=== PATIENT | male | born 1960 | race Caucasian/White ===

== ENCOUNTER 2019-09-17 21:08 | Emergency (ER) | payer SELFPAY ==
--- NOTE | 2019-09-17 21:49 | EDM.PDOC ---
ED HPI GENERAL MEDICAL PROBLEM - General Chief Complaint: ENT Problem Stated Complaint: EARS ARE PLUGGED Time Seen by Provider: 09/17/19 21:35 Source of Information: Reports: Patient History Limitations: Reports: No Limitations - History of Present Illness INITIAL COMMENTS - FREE TEXT/NARRATIVE: ED with c/o ears feeling plugged, every couple of months needs them flushed. left ear canal stuck together with wax this am. PCP in , Here working. Denies other c/o - Related Data Allergies Allergy/AdvReac Type Severity Reaction Status Date / Time ibuprofen Allergy Rash Verified 09/17/19 21:17 Penicillins Allergy Rash Verified 09/17/19 21:17 Sulfa (Sulfonamide Allergy Rash Verified 09/17/19 21:17 Antibiotics) Home Meds: Home Meds Aspirin [Halfprin] 81 mg PO DAILY 09/17/19 [History] Lenalidomide [Revlimid] mg PO DAILY 09/17/19 [History] Past Medical History HEENT History: Reports: Impaired Vision Oncologic (Cancer) History: Reports: Lymphoma Social & Family History - Family History Family Medical History: Noncontributory - Tobacco Use Smoking Status *Q: Never Smoker Second Hand Smoke Exposure: No - Caffeine Use Caffeine Use: Reports: Soda - Recreational Drug Use Recreational Drug Use: No ED ROS ENT - Review of Systems Review Of Systems: Comprehensive ROS is negative, except as noted in HPI. ED EXAM, ENT - Physical Exam Exam: See Below Exam Limited By: No Limitations General Appearance: Alert, No Apparent Distress Eye Exam: Bilateral Eye: EOMI Ears: Normal External Exam, Canal Material (small amount bilateral), Cerumen Impaction (partial bilateral) Mouth/Throat: Normal Inspection Head: Atraumatic, Normocephalic Respiratory/Chest: No Respiratory Distress, Normal Breath Sounds Cardiovascular: Regular Rate, Rhythm Extremities: Normal Range of Motion Neurological: Alert, Oriented Psychiatric: Normal Affect, Normal Mood Course - Vital Signs Last Recorded V/S: Last Vital Signs Temp 97.8 F 09/17/19 21:16 Pulse 70 09/17/19 21:16 Resp 18 09/17/19 21:16 BP 158/76 H 09/17/19 21:16 Pulse Ox 98 09/17/19 21:16 - Re-Assessments/Exams Free Text/Narrative Re-Assessment/Exam: 09/17/19 21:49 Attempted cerumen removal with lighted curette, unable to tolerate. Departure - Departure Time of Disposition: 21:55 Disposition: Home, Self-Care 01 Condition: Good Clinical Impression: Cerumen in auditory canal on examination - Discharge Information *PRESCRIPTION DRUG MONITORING PROGRAM REVIEWED*: No *COPY OF PRESCRIPTION DRUG MONITORING REPORT IN PATIENT ROGE: No Instructions: Earwax Buildup, Adult Forms: ED Department Discharge Additional Instructions: follow up as needed with primary care provider Sepsis Event Note (ED) - Evaluation Sepsis Screening Result: No Definite Risk - Focused Exam Vital Signs: Vital Signs Temp Pulse Resp BP Pulse Ox 09/17/19 21:16 97.8 F 70 18 158/76 H 98
== END 2019-09-17 22:00 | disposition home or self-care (01) ==
LOC: DL.ED 21:08
DX: H61.23 Impacted cerumen, bilateral (principal); Z88.0 Allergy status to penicillin; Z88.2 Allergy status to sulfonamides; Z88.6 Allergy status to analgesic agent; Z79.82 Long term (current) use of aspirin; Z79.899 Other long term (current) drug therapy
CPT/HCPCS: 69210; 99282-25